=== PATIENT | male | born 1985 | race American Indian/Alaskan Native ===

== ENCOUNTER 2020-06-26 21:22 | Emergency (ER) | payer OTHER ==
[2020-06-26] MEDS ORDERED: ACETAMINOPHEN 325 MG TAB PO ONE (23:52)
--- NOTE | 2020-06-26 23:53 | Emergency Department Report ---
<ROCHELLE ESPINOSA III Kilo - Last Filed: 06/27/20 05:29> ED ENT HPI - General Chief complaint: Medical Clearance Stated complaint: RT SIDE SWOLLEN, SINUS - Related Data Allergies Allergy/AdvReac Type Severity Reaction Status Date / Time No Known Allergies Allergy Unverified 06/26/20 22:17 ED Dental HPI - General Chief complaint: Medical Clearance Stated complaint: RT SIDE SWOLLEN, SINUS - Related Data Allergies Allergy/AdvReac Type Severity Reaction Status Date / Time No Known Allergies Allergy Unverified 06/26/20 22:17 ED Course - Reevaluation(s) Reevaluation #1: I reviewed the findings and management of this patient in real-time and I have personally seen and examined this patient and participated in the decision making for this patient with the midlevel. Patient is a 34-year-old male that presents emergency room with fever, facial pain. Patient had a CT scan done which shows a maxillary abscess. This facility does not have ENT support. Patient will be transferred to a facility with ENT support. I examined the patient. Patient has facial tenderness. Patient's CV exam shows a normal S1-S2. Patient abdominal exam is negative. Patient's lung sounds are clear to auscultation. I discussed all results with patient. I discussed plan of care with patient. Patient agrees with plan of care and transfer. 06/27/20 03:29 ED Medical Decision Making - Lab Data Result diagrams: 06/27/20 00:12 06/27/20 00:12 - Differential Diagnosis Abscess, sinusitis, ED Disposition Clinical Impression: Sinus abscess Disposition: DC/TX-70 ANOTHER TYPE HLTHCARE Is pt being admited?: No Does the pt Need Aspirin: No Condition: Critical Referrals: PRIMARY CARE, [Primary Care Provider] - 3-5 Days Time of Disposition: 05:30 <CHAPIN APPIAH - Last Filed: 06/27/20 06:31> ED ENT HPI - General Source: patient Mode of arrival: Ambulatory Limitations: No Limitations - History of Present Illness Initial comments: 34-year-old -[place] male presents to the emergency room for right-sided facial swelling that has gotten worse today. Patient states that it is his sinuses. Patient is taking nothing for his sinuses but did try using a [place] pot which she reports helps some. Patient reports he has had some hot and cold moments. He was unaware that he had a fever. He states he has head pressure. He does report he smokes cigarettes smoke marijuana and drinks alcohol. He denies taking any medications on a daily basis has no known drug allergies and no past medical history. Patient denies any trauma. But does admit to itchy and watery eyes and facial swelling. ED Dental HPI - General Source: patient Mode of arrival: Ambulatory Limitations: No Limitations ED Review of Systems ROS: Stated complaint: RT SIDE SWOLLEN, SINUS Other details as noted in HPI Comment: All other systems reviewed and negative ED Past Medical Hx - Past Medical History Previous Medical History?: No - Surgical History Past Surgical History?: No - Social History Smoking Status: Current Every Day Smoker Substance Use Type: Alcohol ED Physical Exam - General Limitations: No Limitations General appearance: alert - Head Head exam: Present: atraumatic, normocephalic - Eye Eye exam: Present: PERRL, periorbital swelling - ENT ENT exam: Present: normal external ear exam, other (Maxillary swelling, right side facial erythema, maxillary tenderness) - Expanded ENT Exam Expanded TM/Canal exam: Cerumen Impaction: Right TM, Left TM Teeth exam: Present: dental caries, dental tenderness #, gingival enlargement - Respiratory Respiratory exam: Present: normal lung sounds bilaterally. Absent: respiratory distress, chest wall tenderness, accessory muscle use - Cardiovascular Cardiovascular Exam: Present: tachycardia - GI/Abdominal GI/Abdominal exam: Present: soft, normal bowel sounds - Extremities Exam Extremities exam: Present: normal inspection, full ROM - Back Exam Back exam: Present: normal inspection, full ROM - Neurological Exam Neurological exam: Present: alert, oriented X3, normal gait - Psychiatric Psychiatric exam: Present: normal affect, normal mood - Skin Skin exam: Present: warm, dry, intact, normal color. Absent: rash ED Course Vital Signs 06/26/20 06/26/20 06/27/20 22:23 22:24 03:30 Temperature 100.0 F H 98.5 F Pulse Rate 93 H 87 Respiratory 19 16 Rate Blood Pressure 129/87 Blood Pressure 126/82 [Right] O2 Sat by Pulse 98 98 Oximetry - Consultations Consultation #1: 06/27/20 02:00 Spoke with [facility] states they are not able to accept patient if the patient has not been evaluated at [facility]. Consultation #2: 06/27/20 03:[address] Peter from [facility] she has accepted patient to ER to ER. ED Medical Decision Making - Lab Data Result diagrams: 06/27/20 00:12 06/27/20 00:12 - Radiology Data Radiology results: report reviewed [facility] [address] [place] [address] Cat Scan Report Signed Patient: INDIA DIAZ JR MR#: [id number] : 1985 Acct:[id number] Age/Sex: 34 / M ADM Date: 06/26/20 Loc: ED Attending Dr: Ordering Physician: NOLA VALENZUELA Date of Service: 06/26/20 Procedure(s): CT facial bones w con Accession Number(s): [id number] cc: NOLA VALENZUELA CT facial bones w con INDICATION: Right-sided facial swelling. TECHNIQUE: All CT scans at this location are performed using CT dose reduction for ALARA by means of automated exposure control. COMPARISON: None available. FINDINGS: Slight soft tissue swelling is demonstrated just inferior to the nose, slightly to the right of midline. There is a loculated fluid collection in this area, immediately adjacent to the maxillary bone, measuring approximately 2.3 cm x 0.9 cm x 1.4 cm. This fluid collection contains droplets of gas and may well represent abscess. No appreciable bone destruction. IMPRESSION: 1. Findings suggest abscess adjacent to the anterior maxillary bone, just to the right of midline, at the area of soft tissue swelling. Signer Name: Harlan Mijares MD Signed: 06/27/2020 1:57 AM Workstation Name: [id number] Transcribed By: TM Dictated By: Harlan Mijares MD Electronically Authenticated By: Harlan Mijares MD Signed Date/Time: 06/27/20156 DD/ 9 TD/TT: Print Cancel - Medical Decision Making 34-year-old -[place] male presents to the emergency room for right-sided facial swelling that has gotten worse today. Patient states that it is his sinuses. Patient is taking nothing for his sinuses but did try using a [place] pot which she reports helps some. Patient reports he has had some hot and cold moments. He was unaware that he had a fever. He states he has head pressure. He does report he smokes cigarettes smoke marijuana and drinks alcohol. He denies taking any medications on a daily basis has no known drug allergies and no past medical history. Patient denies any trauma. But does admit to itchy and watery eyes and facial swelling. CBC CMP, CT with contrast face and clindamycin 300 mg IV Discuss case with my attending Dr. Espinosa. CT is of face shows an abscess to the sinuses. Will call [facility] to discuss with her ENT department. Patient has been accepted to to [facility] ED to ED by Dr. Riggins. Critical Care Time: Yes Critical care time in (mins) excluding proc time.: 30 Critical care attestation.: If time is entered above; I have spent that time in minutes in the direct care of this critically ill patient, excluding procedure time. ED Disposition Is pt being admited?: No Does the pt Need Aspirin: No
[2020-06-27 00:51] LABS: Basophils # (Auto) 0.1 K/mm3 (0.0-0.1); Basophils % (Auto) 0.8 % (0.0-1.8); Eosinophils % (Auto) 0.3 % (0.0-4.3); Hematocrit 43.6 % (35.5-45.6); Hemoglobin 14.7 gm/dl (11.8-15.2); Lymphocytes # (Auto) 2.9 K/mm3 (1.2-5.4); Lymphocytes % (Auto) 18.1 % (13.4-35.0); Mean Corpuscular HGB Conc 34 % (32-34); Mean Corpuscular Volume 98 fl (84-94); Monocytes # (Auto) 1.4 K/mm3 (0.0-0.8); Monocytes % (Auto) 8.9 % (0.0-7.3); Platelet Count 271 K/mm3 (140-440); Red Blood Count 4.46 M/mm3 (3.65-5.03)
[2020-06-27] MEDS ORDERED: CLINDAMYCIN 300 MG/50 mL 300 MG/50 ML BAG IV ONE (01:00)
[2020-06-27 01:03] LABS: BUN/Creatinine Ratio 12; Blood Urea Nitrogen 11 mg/dL (9-20); Calcium 9.3 mg/dL (8.4-10.2); Hemolysis Index 88
--- NOTE | 2020-06-27 02:01 | Cat Scan Report ---
CT facial bones w con INDICATION: Right-sided facial swelling. TECHNIQUE: All CT scans at this location are performed using CT dose reduction for ALARA by means of automated e xposure control. COMPARISON: None available. FINDINGS: Slight soft tissue swelling is demonstrated just inferior to the nose, slightly to the right of midli ne. There is a loculated fluid collection in this area, immediately adjacent to the maxillary bone, m easuring approximately 2.3 cm x 0.9 cm x 1.4 cm. This fluid collection contains droplets of gas and m ay well represent abscess. No appreciable bone destruction. IMPRESSION: 1. Findings suggest abscess adjacent to the anterior maxillary bone, just to the right of midline, at the area of soft tissue swelling. Signer Name: Harlan Mijares MD Signed: 06/27/2020 1:57 AM Workstation Name: [id number]
[2020-06-27 03:31] VITALS: BP 126/82
== END 2020-06-27 04:30 | disposition other institution (70) ==
LOC: ED 21:22
DX: J32.9 Chronic sinusitis, unspecified (principal); F17.200 Nicotine dependence, unspecified, uncomplicated
CPT/HCPCS: 36415; 70487; 80048; 85025; 96365; 99285; Q9967